=== PATIENT | male | born 1960 | race Caucasian/White ===

== ENCOUNTER → 2016-09-05 | Outpatient (CLI) | payer BC ==
--- NOTE | 2016-09-05 12:23 | RADRPT ---
PROCEDURE: XR right knee. CLINICAL INDICATION: Knee pain TECHNIQUE: AP weightbearing, PA weightbearing, lateral weightbearing and sunrise views are availab le for review. COMPARISON: None available FINDINGS: There is mild narrowing of the medial tibial femoral compartment. The osseous structures are otherwi se normal in mineralization, architecture and alignment. No fractures are identified. No osseous l esions are identified. The soft tissues are unremarkable. IMPRESSION: Mild narrowing of the medial tibial femoral compartment (query osteoarthrosis) RPTAT: [facility] .David Finley MD, MD Date Time Electronically viewed and signed by .David Finley MD, MD on 09/05/2016 12:23 .B/
== END | disposition home or self-care (01) ==
LOC: HKI 10:07
PROVIDERS: ATTEND Orthopaedic Surgery
DX: S83.231A Complex tear of medial meniscus, current injury, right knee, initial encounter (principal); X50.9XXA Other and unspecified overexertion or strenuous movements or postures, initial encounter; Y93.42 Activity, yoga; M25.561 Pain in right knee
CPT/HCPCS: 73564; G0463